=== PATIENT | male | born 1950 | race Asian ===

== ENCOUNTER 2021-01-02 10:39 | Emergency (ER) | payer MEDICARE, OTHER ==
[~2021-01-02] VITALS: Ht 167.6 cm; Wt 82.1 kg
[~2021-01-02 10:39] MED LIST: AMLO-257 GT; ATOR40TA28 PO; AUD NEB; BUDE0.5A3 NEB; DOXA2TAB GT; FAMO20 GT; FLUT16H NASAL; INSLAN SQ; INSREG SQ; IPRNEB IH; LORA10TA7 GT; METO25 PO; MIRT-89 GT; NICA GT; PERID15L MM; PETR3.5O OU; PSYL1PAC11 GT; SITA100 PO; TAMS-13 GT; TEAROS OU; [UNRECOGNIZED DRUG - CODE] GT
[2021-01-02] MEDS ORDERED: IOVERSOL 350 MG/ML 100 ML VIAL ONE (11:26)
[2021-01-02] MEDS ORDERED: SODIUM CHLORIDE 0.9% 100 ML ONE (11:26)
[2021-01-02 11:33] LABS: CALCIUM, TOTAL 9.2 mg/dL (8.8-10.5); CREATININE 1.81 mg/dL (0.60-1.30); POTASSIUM 5.5 mmol/L (3.5-5.1)
[2021-01-02 11:46] LABS: PROTHROMBIN TIME 10.6 SEC (9.4-11.6)
[2021-01-02 11:52] LABS: ALBUMIN 2.4 g/dL (3.4-5.0); BILIRUBIN,TOTAL 0.8 mg/dL (0.1-1.0); TOTAL PROTEIN, SERUM 8.5 g/dL (6.4-8.2)
[2021-01-02] MEDS ORDERED: FURO20 PO (11:55)
[2021-01-02] MEDS ORDERED: LEVE100S7 PO (11:55)
[2021-01-02 12:34] LABS: EOSINOPHILS % (AUTO) 0.8 % (1.0-6.0); HEMOGLOBIN 12.4 g/dL (13.5-17.5); LYMPHOCYTES % (AUTO) 16.1 % (22.0-44.0); MEAN CORPUSCULAR HEMOGLOBIN 32.5 pg (26.0-34.0); MEAN CORPUSCULAR HGB CONC 33.4 G/dL (31.0-37.0); MEAN CORPUSCULAR VOLUME 97 fL (80-100); MONOCYTES % (AUTO) 8.2 % (2.0-9.0); NEUTROPHILS # (AUTO) 8.9 K/uL (1.8-7.7); NEUTROPHILS % (AUTO) 73.9 % (40.0-70.0); PLATELET COUNT (AUTO) 254 K/uL (150-450); RED BLOOD CELL COUNT(AUTO) 3.81 MIL/uL (4.50-5.90); RED CELL DISTRIBUTION WIDTH 12.9 % (11.5-14.5)
[2021-01-02 12:43] LABS: COVID AG,FIA SOURCE NASOPHARYNGEAL
[2021-01-02 12:55] VITALS: BP 114/78
== END 2021-01-02 13:16 | disposition designated cancer center or children's hospital (05) ==
LOC: EMS 10:57
DX: I63.9 Cerebral infarction, unspecified (principal); Z20.822 Contact with and (suspected) exposure to COVID-19
CPT/HCPCS: 36415; 70450; 70496; 71045; 80053; 82962; 84484; 85025; 85610; 85730; 86850; 86900; 86901; 87426; 93005; 99291; C9803; J7050; Q9967